=== PATIENT | female | born 1940 | race Caucasian/White ===

== ENCOUNTER 2023-03-05 08:48 | Observation (INO) ==
--- NOTE | 2023-01-26 13:04 | PAT Medication Instructions ---
Medication Instructions Date of Service January 26, 2023 Home Medications amlodipine 10 mg tablet 10 mg PO QAM calcium 600 mg capsule 600 mg PO QAM cetirizine 10 mg tablet (Zyrtec) 10 mg PO DAILY PRN Allergy Symptoms cholecalciferol (vitamin D3) 125 mcg (5,000 unit) tablet (Vitamin D3) 125 mcg PO QAM escitalopram oxalate 20 mg tablet (Lexapro) 20 mg PO PM hydrochlorothiazide 25 mg tablet 25 mg PO QAM levothyroxine 88 mcg tablet 88 mcg PO QAM lisinopril 20 mg tablet 20 mg PO QAM omeg3-epa 150 mg-dha 100 mg-fish oil-flaxseed oil 333 mg-E 61 unit cap (TheraTe51 [employer]) 1 cap PO QAM omeprazole 20 mg capsule,delayed release 40 mg PO QDL simvastatin 40 mg tablet 40 mg PO PM Continue as directed omeprazole 20 mg capsule,delayed release 40 mg PO QDL STOP taking 2 weeks before surgery omeg3-epa 150 mg-dha 100 mg-fish oil-flaxseed oil 333 mg-E 61 unit cap (uchooseaTe51 [employer] Nutrition) 1 cap PO QAM DO NOT take the morning of surgery calcium 600 mg capsule 600 mg PO QAM cetirizine 10 mg tablet (Zyrtec) 10 mg PO DAILY PRN Allergy Symptoms cholecalciferol (vitamin D3) 125 mcg (5,000 unit) tablet (Vitamin D3) 125 mcg PO QAM hydrochlorothiazide 25 mg tablet 25 mg PO QAM lisinopril 20 mg tablet 20 mg PO QAM Take morning of surgery With a small sip of water, OTHERWISE NOTHING TO EAT OR DRINK AFTER MIDNIGHT: amlodipine 10 mg tablet 10 mg PO QAM levothyroxine 88 mcg tablet 88 mcg PO QAM Take evening before surgery cetirizine 10 mg tablet (Zyrtec) 10 mg PO DAILY PRN Allergy Symptoms (if needed) escitalopram oxalate 20 mg tablet (Lexapro) 20 mg PO PM simvastatin 40 mg tablet 40 mg PO PM Other Notes If you have any questions please call us at [phone] or [phone] or [phone] or [phone]
--- NOTE | 2023-02-03 12:35 | Anesthesiology Consultation ---
Date of Service February 03, 2023 Assessment & Plan (1) Encounter for pre-operative examination: Chart Review Chart Review: Acceptable Risk for Surgery (pending PCP response regarding anemia) and Patient seen in Pre Admission Testing - Please send optimization note re: anemia and preop labs to [facility] - Dr. Krishnamurthy - await response - Pt is NOT ideal OPJ candidate due to age and travel time Per PAT appt on 02/03/23, patient denies any recent travel or large group activities. Pt is vaccinated for Covid. Will leave to surgeon's discretion if preop Covid testing needed. Educated on importance of using Covid precautions one week prior to surgery Teaching & Discussion Pre-Anesthesia Teaching/Discussion Notes: Instructed NPO after midnight before surgery,except medications with 15 cc of water. Medication instructions provided according to the [facility] guidelines. History Surgery Operation Date: 03/05/23 10:20 Proposed Procedures p Left Reverse Total Shoulder Arthroplasty - Lele Camejo, Height/Weight Height: 4 ft 11 in Weight: 68.5 kg Allergies Allergy/AdvReac Type Severity Reaction Status Date / Time No Known Allergies Allergy Unknown Verified 01/25/23 10:49 Medications Home Medications Medication Instructions Recorded Confirmed Last Taken amlodipine 10 mg tablet 10 mg PO QAM 01/25/23 01/25/23 Unknown calcium 600 mg capsule 600 mg PO QAM 01/25/23 01/25/23 Unknown cetirizine 10 mg tablet (Zyrtec) 10 mg PO DAILY PRN Allergy Symptoms 01/25/23 01/25/23 Unknown cholecalciferol (vitamin D3) 125 125 mcg PO QAM 01/25/23 01/25/23 Unknown mcg (5,000 unit) tablet (Vitamin D3) escitalopram oxalate 20 mg tablet 20 mg PO PM 01/25/23 01/25/23 Unknown (Lexapro) hydrochlorothiazide 25 mg tablet 25 mg PO QAM 01/25/23 01/25/23 Unknown levothyroxine 88 mcg tablet 88 mcg PO QAM 01/25/23 01/25/23 Unknown lisinopril 20 mg tablet 20 mg PO QAM 01/25/23 01/25/23 Unknown omeg3-epa 150 mg-dha 100 mg-fish 1 cap PO QAM 01/25/23 01/25/23 Unknown oil-flaxseed oil 333 mg-E 61 unit cap (TheraTears Nutrition) omeprazole 20 mg capsule,delayed 40 mg PO QDL 01/25/23 01/25/23 Unknown release simvastatin 40 mg tablet 40 mg PO PM 01/25/23 01/25/23 Unknown Past Medical History Medical History (Updated 02/03/23 @ 12:42 by Pat Barros PA-C) Chronic back pain Follows with pain management - getting steroid injection 02/17/23- Dr. Camejo aware per patient GERD (gastroesophageal reflux disease) Well controlled and stable History of kidney stones No recent issues HLD (hyperlipidemia) HTN (hypertension) Hypothyroidism Osteoarthritis Osteoporosis Exercise / Class Metabolic Activity III < 4 Walking/Shop/Light housework (no chest pain or SOB with flat surface ambulation) Past Surgical History Surgical History History of back surgery x 2 History of cardiac catheterization [facility] >10 years ago - no stents History of cholecystectomy History of colonoscopy History of cystoscopy with stone extraction History of esophagogastroduodenoscopy (EGD) History of knee replacement procedure of left knee History of partial thyroidectomy Due to thyroid nodule History of total abdominal hysterectomy and bilateral salpingo-oophorectomy Hx of laparoscopic gastric banding Past Anesthesia History No Hx of Anesthesia Complications (with remote hx of slow to wake - groggy - no reintubation or ICU stay- no issues with subsequent surgeries ) and No Family Hx of Anesthesia Complications History of PONV No Hx of PONV and No Hx of Motion Sickness Social History Smoking Status: Never smoker Do You Dip or Chew Tobacco: No Hx Alcohol Use: No Hx Substance Use: No substance use type: does not use Review of Systems Chronic ongoing cough x months- following with PCP- CXR 12/2022 unremarkable; Covid negative per patient. Patient denies chest pain, shortness of breath at rest, wheezing, palpitations. No hx of seizures, stroke, PA, apnea/snoring. No hx of blood clots or blood transfusions Physical Exam Vital Signs VITALS BP 141/78 P 91 TEMP 98.0 SP02 98% RESP 16 Constitutional no acute distress ENMT Mouth: no TMJ clicking Thyromental Distance: > or= 3.5 Finger Breadths (3.5) Mallampati Class: II Full dentures on top and bottom Neck neck extension not limited Respiratory normal respiratory effort; no respiratory distress Auscultation: lungs clear to auscultation bilaterally; no wheezes Cardiovascular Rate/Rhythm: regular rate and regular rhythm Heart Sounds: no murmur Vessels: no carotid bruit Musculoskeletal Spine: no pain with cervical ROM Extremities: extremities normal to inspection Psychiatric Orientation: alert Lab Results Anesthesia Preop Results Results Anesthesia Widget: WBC 6.17 K/ul (4.8-10.8) 02/03/23 Hgb 10.8 g/dl (12.0-16.0) L 02/03/23 Hct 35.9 % (37.0-47.0) L 02/03/23 Plt 368 K/uL (130-400) 02/03/23 Na 140 mmol/L (136-145) 02/03/23 K 3.6 mmol/L (3.5-5.1) 02/03/23 Cl 108 mmol/L (98-107) H 02/03/23 CO2 26 mmol/L (21-32) 02/03/23 BUN 24 mg/dl (6-23) H 02/03/23 Creat 0.52 mg/dl (0.6-1.2) L 02/03/23 Glucose Level 99 mg/dl (70-99(Fasting)) 02/03/23 PT 10.5 Seconds (9.0-12.0) 02/03/23 PTT 26.6 Seconds (21.0-31.0) 02/03/23 INR 1.0 (0.9-1.1) 02/03/23 Blood Type O Positive 02/03/23 Antibody Screen NEGATIVE 02/03/23 Testing Electrocardiogram Date: 02/03/23 Findings: + NSR @ (78bpm) Left axis deviation Chest X-Ray Date: 02/03/23 FINDINGS: Postoperative findings within the abdomen and spine are noted. There are cholecystectomy clips and a gastric lap band. Lung volumes are normal. Lungs are clear. There is no pneumothorax or pleural effusion. Cardiac size is normal. Mediastinal contours are normal. There is no evidence for pulmonary edema. IMPRESSION: No acute cardiopulmonary findings. COVID-19 Risk Screen Screening Information COVID-19 Screen Date: 02/03/23 Exposure 21 Days Family/Household +COVID Last 21 Days: No Exposure 10 Days Any COVID Exposure Last 10 Days: No Symptoms Last 10 Days Experienced COVID Sx Last 10 Days: No + COVID 0-90 Days COVID + in Last 0-90 Days: No Risk Plan COVID Risk Plan: No Risk Identified Patient Education COVID Preop Screening Education Complete: Yes
[~2023-03-05 08:48] MED LIST: ACETAMINOPHEN 500 MG TAB PO SCH; BUPIVACAINE 0.5 % 5 MG/1 ML PF 10ML VIAL ONE; FAMOTIDINE 20 MG TAB PO SCH; GABAPENTIN 300 MG CAP PO SCH; LR 15ML/HR IV SCH; LR 60ML/HR IV SCH; ORTHO JOINT MIX INFIL SCH; TRANEXAMIC ACID 1,000 MG **IV Intra-op IV SCH; TRANEXAMIC ACID 1,000 MG **IV Pre-op IV SCH; ceFAZolin 2000MG 2,000 MG/15 ML SYR IV SCH; dexAMETHasone 4 MG TAB PO SCH
[2023-03-05] MEDS ORDERED: MIDAZOLAM HCL 1 MG/ML 2ML VIAL ONE (10:52)
[2023-03-05] MEDS ORDERED: fentaNYL citrate PF 100 MCG/2 ML VIAL ONE (10:55)
[2023-03-05] MEDS ORDERED: ONDANSETRON INJ 2 MG/ML 2 ML VIAL ONE (10:55)
[2023-03-05] MEDS ORDERED: PROPOFOL IV EMULSION 10 MG/ML 20 ML VIAL IV ONE (10:55)
--- NOTE | 2023-03-05 11:57 | History & Physical Bridge Note ---
Date of Service March 05, 2023 History & Physical Bridge Note I have examined the patient, reviewed the History & Physical and in the interval since the performance of the History & Physical I have noted the following changes of clinical significance: no changes noted
[2023-03-05] MEDS ORDERED: fentaNYL citrate PF 100 MCG/2 ML VIAL IV PRN (12:20)
[2023-03-05] MEDS ORDERED: ATROPINE SULFATE 0.1 MG/ML 10ML SYR IV PRN (12:20)
[2023-03-05] MEDS ORDERED: ONDANSETRON INJ 2 MG/ML 2 ML VIAL IV PRN ×2 (12:20→16:05)
[2023-03-05] MEDS ORDERED: ePHEDrine sulfate 50 MG/ML AMP IV PRN (12:20)
[2023-03-05] MEDS ORDERED: ORTHO JOINT ANESTHETIC ONE (12:35)
--- NOTE | 2023-03-05 14:17 | Operative Report ---
PG Post Operative Report Pre & Post Diagnosis Operation Date: 03/05/23 11:55 Pre-Op Diagnosis: Rotator Cuff Arthropathy of Left Shoulder Post-Op Diagnosis: Rotator Cuff Arthropathy of Left Shoulder I identified the patient and participated in the time-out.: Yes Procedure Operation Date: 03/05/23 11:55 Actual Procedures p Left Reverse Total Shoulder Arthroplasty(Left) - Lele Camejo DO Surgeon Lele Camejo DO Income Tax Adjuster Lele Anand PA-C Estimated Blood Loss 150 Findings Consistent with Post-Op Diagnosis Specimens Left humeral head Description of Procedure A CPT code modifier 59: The long head of the biceps tendon was enlarged and inflamed consistent with tendinopathy. A tenodesis was opted. This was a s eparate and distinct portion of the procedure. For these reasons, a CPT code modifier 59 will be added to this case. Implants used: I used a [employer]omet Comprehensive reverse total shoulder arthroplasty system with a size 12 press fit micro humeral stem, a +6 offset humeral tray and a +3 retentive humeral bearing, a 25 mm baseplate with a 6.5 mm central screw and superior and inferior locking screws, and a size 36 mm eccentric glenosphere. Nicci arrived at [facility] for the above procedure. She was seen in the preoperative holding area and the operative extremity was identified and signed. She was given a preoperative antibiotic, TXA, and an interscalene nerve block. She was taken back to the operating room, laid on table in supine position, and put under general anesthesia. She was then put into the beachchair position. The shoulder was then prepped and draped in sterile fashion. A timeout was done and the patient and the operative extremity was properly identified. A deltopectoral approach was used. Dissection was taken down through the fascia and the deltoid was retracted laterally and the conjoined tendon was retracted medially. The anterior shoulder was exposed. The biceps tendon was chronically torn. The subscapularis was then directly released off the lesser tuberosity with a peel technique. The inferior capsule was released and the humeral head was dislocated. A canal finding reamer was sent down the center of the humeral canal. Sequential reaming up to a size 12 reamer was done. Off that reamer, a proximal humeral resection guide was placed. The proximal humerus was resected at 135 of inclination and 25 of retroversion. Osteophytes were then removed and the glenoid was exposed. Time was spent doing a complete capsular and labral release. The glenoid guide was then placed in the inferior aspect of the glenoid. A 3.2 mm Steinmann pin was then placed into the glenoid vault at 10 of inclination. The glenoid baseplate was then reamed. The final size 25 mm baseplate was then impacted in the place. A 6.5 mm central screw was then placed followed by superior and inferior locking screws. A 36 mm eccentric glenosphere was then impacted into place. Surrounding soft tissues were then injected with 100 cc an orthopedic pain control cocktail. The proximal humerus was then exposed. Sequential broaching of the humerus up to a size 12 broach was done. Off that broach a +6 offset and +3 retentive humeral tray was trialed. The shoulder was then reduced, brought through a full range of motion, and felt to be stable. The shoulder was then dislocated and the broach was removed. The final size 12+3 retentive micro press-fit humeral stem was then impacted into place. A +3 retentive humeral bearing was then snapped onto a +6 offset humeral tray. The humeral tray was then impacted onto the humeral stem. The shoulder was once again reduced, brought through a full range of motion, and felt to be stable. The subscapularis was then tenodesed back to the lesser tuberosity with transosseous FiberWire sutures and side to side sutures with the arm in 45 of external rotation. A dilute betadyne lavage was then done for 3 minutes. The joint was then irrigated with normal saline solution. Hemostasis was obtained. The interval was closed with 2-0 Vicryl suture. The skin was then closed with 2-0 Vicryl and yin. A Silverlon dressing was placed and the arm was rested in a regular arm sling. She was then extubated and transferred to a hospital bed. She taken to the postanesthesia care unit in stable condition. She tolerated the procedure well. Lele Anand PA-C, was present for the entire procedure. He was critical for patient positioning, prepping, draping, retraction exposure, wound closure and application of sterile dressing. I attest to the content of the Intraoperative Record and any orders documented therein. Any exceptions are noted below.
[2023-03-05] MEDS ORDERED: HYDROmorphone INJ 0.5 MG/0.5 ML SYR IV PRN (16:05)
[2023-03-05] MEDS ORDERED: NALOXONE HCL 0.4 MG/1 ML VIAL/CARP IV PRN (16:05)
[2023-03-05] MEDS ORDERED: MAGNESIUM HYDROXIDE SUSP 30 ML UDC PO PRN (16:05)
[2023-03-05] MEDS ORDERED: bisacodyL 10 MG SUPP PR PRN (16:05)
[2023-03-05] MEDS ORDERED: CETIRIZINE HCL 10 MG TABLET PO PRN (16:05)
[2023-03-05] MEDS ORDERED: SODIUM CHLORIDE 0.9% 1000ML 1,000 ML IV SCH (16:05)
[2023-03-05] MEDS ORDERED: oxyCODONE HCL IR 5 MG TAB (IMMEDIATE RELEASE) PO PRN (16:05)
[2023-03-05] MEDS ORDERED: METOCLOPRAMIDE HCL INJ 5 MG/ML 2 ML VIAL IV PRN (16:05)
--- NOTE | 2023-03-05 16:07 | XRay Report ---
XR shoulder LT min 2V routine CLINICAL HISTORY: Post shoulder surgery COMPARISON STUDY: None. FINDINGS: Status post reverse left total shoulder arthroplasty. The hardware appears intact. No acute fracture or dislocation. Skin yin are in place. Moderate degenerative changes at the AC joint. IMPRESSION: Status post reverse left total shoulder arthroplasty. No evidence for hardware complicat ion. ACT 112: Negative or not required by law. Electronically signed by: Josep Del Rio M.D. 03/05/2023 4:06 PM
[2023-03-05] MEDS: KETOROLAC TROMETHAMINE 15 MG/ML VIAL IV SCH ×2 (17:30→21:48)
[2023-03-05] MEDS: ceFAZolin 2000MG 2,000 MG/15 ML SYR IV SCH (20:39)
[2023-03-05] MEDS: ACETAMINOPHEN 500 MG TAB PO SCH (20:39)
[2023-03-05] MEDS: DOCUSATE SODIUM 100 MG CAP PO SCH (20:40)
[2023-03-05] MEDS ORDERED: ESCITALOPRAM OXALATE 20 MG TAB PO SCH (21:00)
[2023-03-05] MEDS ORDERED: SENNA 8.6 MG TAB PO SCH (21:00)
[2023-03-05] MEDS ORDERED: SIMVASTATIN 40 MG TAB PO SCH (21:00)
[2023-03-06] MEDS: KETOROLAC TROMETHAMINE 15 MG/ML VIAL IV SCH ×2 (04:21→10:06)
[2023-03-06] MEDS: ceFAZolin 2000MG 2,000 MG/15 ML SYR IV SCH (04:21)
[2023-03-06] MEDS: ACETAMINOPHEN 500 MG TAB PO SCH (04:22)
[2023-03-06] MEDS ORDERED: LEVOTHYROXINE SODIUM 88 MCG TABLET PO SCH (06:30)
--- NOTE | 2023-03-06 06:55 | Orthopedic Progress Note ---
Date of Service March 06, 2023 Assessment & Plan (1) Status post reverse total replacement of left shoulder: Overall she is doing very well. She is not having much pain in the left shoulder. She will be seen by physical therapy today for ambulation and range of motion exercises. She can be discharged home later today. She will follow- up orthopedics in 2 weeks. Osbaldo Grajeda was seen and examined at bedside this morning. Overall she is doing very well. She is not having much pain in the left shoulder. She was able to get some sleep last night. She has no complaints.. Review of Systems All systems reviewed & are unremarkable except as noted in HPI & below. Physical Exam On physical examination of the left shoulder, the dressing is clean and dry. She is wearing her sling as instructed.. Results & Data Results & Data Laboratory Results . Diagnostic Findings Postoperative x-rays of the left shoulder show the prosthesis to be in anatomic alignment without any evidence of fracture, screws, or loosening. PG Care Time/CCT Total # of Minutes Spent Total Time Spent with Patient: Total time spent is greater than 50% in coordination of care (as documented) at patient's floor/unit and/or counseling patient: Coding Level of Care Code 07272 Post Operative Follow-Up Diagnoses Status post reverse total replacement of left shoulder Z96.612
--- NOTE | 2023-03-06 06:56 | Discharge Summary ---
Date of Service March 06, 2023 Principal Diagnosis Same as "Discharge Diagnosis" noted below under Discharge Instructions. Discharge Exam On physical examination of the left shoulder, the dressing is clean and dry. She is wearing her sling as instructed.. Discharge Data Procedures Performed Operation Date: 03/05/23 11:55 Actual Procedures p Left Reverse Total Shoulder Arthroplasty(Left) - Lele Camejo DO Ordered Studies 03/05/23 05:00 US - OR guided needle placemen Routine Hospital Course (1) Status post reverse total replacement of left shoulder: On March 05, 2023 Nicci arrived at [facility] and underwent a left reverse shoulder replaced without complication. She had a general anesthetic and a left interscalene nerve block. Postoperatively she was placed in a sling and transferred to the general orthopedic floors. Her hospital course was uneventful. On postop day #1, her vital signs were stable and her pain was well controlled. She was able to participate well with physical therapy doing ambulation and range of motion exercises. She was then discharged home. She will follow-up with orthopedics in 2 weeks. PG Care Time/CCT Total # of Minutes Spent Total Time Spent with Patient: Total time spent is greater than 50% in coordination of care (as documented) at patient's floor/unit and/or counseling patient: Discharge Plan Discharge Items Patient Disposition: Home - Home Health Services Reason For Visit: DJD Left Shoulder Discharge Diagnosis: Left reverse shoulder replacement Activity: Per Instructions section Non-emergency contact: Surgeon Call non-emergency contact if: your wound has increased redness and your wound has increased drainage Follow-up/Referrals: Isacc Krishnamurthy M.D. [Primary Care Provider] - Diet: Regular Addtl Attending Provider Instructions: Activity and Therapy Recommendations: * If you are using [facility] then therapy will be provided at your home until they feel you have accomplished all of your goals. * If you are using [facility] then Physical Therapy will be provided until they feel you are ready to start Outpatient Physical Therapy. * If you are not using home therapy then Outpatient Physical Therapy should start about 3-5 days from your day of surgery. Therapy will last about 8-12 w eeks * Wear your sling for 3 weeks, unless otherwise instructed. You may remove your sling to shower and to dress, but otherwise, you should be in your sling at all times, including while sleeping * The shoulder replacement is very stable and you can use your hand while in the sling * You were shown a series of exercises in the hospital. Do these exercises daily including the exercises you were shown in physical therapy. Medications: * Narcotic You will likely be sent home from the hospital with a prescription for the narcotic pain medication that worked best throughout your stay. * Other medications may be prescribed for specific circumstances. If you have any questions, please call the office at . * Resume previous home medications unless otherwise instructed Dressing Care: Leave the Silverlon dressing in place for 7 days. After 7 days you may remove the dressing. If the incision is not draining then you may leave the yin open to air. If there is a little bit of drainage or if the yin are getting stuck on your clothing then cover the incision with a dry dressing. The yin will be removed at your 2 week follow-up appointment. Showering: You may shower with the Silverlon dressing in place. Do not let the shower spray hit the dressing directly. Pat the Silverlon dressing dry. If the dressing becomes wet underneath, then simply remove the dressing. Keep the incision dry until you are 7 days out from the day of surgery. After 7 days you may remove the Silverlon dressing and shower with the yin exposed. Let soapy water run over the yin and pat them dry. Do not scrub or soak the incision. Things To Watch For: * Drainage from the incision site that occurs more than one week after your surgery. * Increased redness at the incision site. * Fever above 102 degrees Fahrenheit. * Unusual chest pain or shortness of breath. * Call [facility] at with any of the above problems Follow-Up Visit: Follow-up with Dr. Camejo's PA (Lele Anand) 2-3 weeks after your day of surgery. He will remove your yin and answer any questions. If you have any additional questions or concerns, Dr Camejo is usually in the office at the same time and will be available An appointment was probably scheduled when you signed-up for surgery in the office. If you have any questions call More detailed instructions as well as Frequently Asked Questions were provided in a folder by our office when you signed-up for surgery. Please review these instructions when you get home. If you have any further questions or concerns, please feel free to call the office at [phone] Pending Studies at Discharge: No Stand-Alone Forms: My [facility], Smoking Cessation Medications and DC Order Prescriptions: New tramadol 50 mg tablet 50 mg PO Q6H PRN (Reason: pain) Qty: 30 0RF Continued calcium 600 mg Capsule 600 mg PO QAM cetirizine [Zyrtec] 10 mg Tablet 10 mg PO DAILY PRN (Reason: Allergy Symptoms) lisinopril 20 mg Tablet 20 mg PO QAM simvastatin 40 mg Tablet 40 mg PO PM levothyroxine 88 mcg Tablet 88 mcg PO QAM amlodipine 10 mg Tablet 10 mg PO QAM hydrochlorothiazide 25 mg Tablet 25 mg PO QAM escitalopram oxalate [Lexapro] 20 mg Tablet 20 mg PO PM TheraTears Nutrition [phone] [id number] Capsule 1 cap PO QAM cholecalciferol (vitamin D3) [Vitamin D3] 125 mcg (5,000 unit) Tablet 125 mcg PO QAM omeprazole 20 mg Capsule,Delayed Release(Dr/Ec) 40 mg PO QDL Admission Data Admit Date/Time: 03/05/23 14:27 Attending Provider: Lele Camejo Admit Provider: Lele Camejo Primary Care Provider: Isacc Krishnamurthy
[2023-03-06] MEDS: DOCUSATE SODIUM 100 MG CAP PO SCH (07:48)
[2023-03-06] MEDS ORDERED: dexAMETHasone 4 MG TAB PO SCH (08:00)
[2023-03-06] MEDS ORDERED: hydroCHLOROthiazide 25 MG TAB PO SCH (09:00)
[2023-03-06] MEDS ORDERED: amLODIPine BESYLATE 5 MG TAB PO SCH (09:00)
[2023-03-06] MEDS ORDERED: MULTIVITAMIN TAB PO SCH (09:00)
[2023-03-06] MEDS ORDERED: lisinopril 20 MG TAB PO SCH (09:00)
--- NOTE | 2023-03-08 13:10 | Anesthesiology Progress Note ---
Date of Service March 08, 2023 Anesthesia Post Procedure Pain Intensity Left Shoulder: Pain Intensity: 3 Transfer of Care Handoff Completed per policy Notes Mental Status: alert / awake / arousable and participated in evaluation Patient Amnestic to Procedure: Yes Nausea / Vomiting: adequately controlled Pain: adequately controlled Airway Patency, RR, SpO2: stable & adequate BP & HR: stable & adequate Hydration State: stable & adequate Anesthetic Complications: no major complications apparent and Pt Satisfied with anesthetic care
== END 2023-03-06 13:14 | disposition home or self-care (01) ==
LOC: ASU 08:48 → 3E 08:48